=== PATIENT | male | born 2000 | race Caucasian/White ===

== ENCOUNTER 2022-07-09 11:24 | Emergency (ER) | payer OTHER ==
[~2022-07-09] VITALS: Ht 172.7 cm; Wt 75.0 kg
[2022-07-09 11:40] VITALS: BP 118/78
== END 2022-07-09 12:51 | disposition home or self-care (01) ==
LOC: ER 12:47
DX: M25.572 Pain in left ankle and joints of left foot (principal); J45.909 Unspecified asthma, uncomplicated; X58.XXXA Exposure to other specified factors, initial encounter; Y93.89 Activity, other specified; Y92.89 Other specified places as the place of occurrence of the external cause; Y99.8 Other external cause status
CPT/HCPCS: 99281